=== PATIENT | male | born 1970 | race Caucasian/White ===

== ENCOUNTER 2017-02-09 08:57 | Emergency (ER) | payer SELFPAY ==
[2017-02-09] MEDS ORDERED: LABETALOL HCL 5 MG/ML VIAL IV ONE ×5 (09:15→10:29)
[2017-02-09 09:23] LABS: Hemoglobin 16.7 gm/dL (13.5-18.0); Mean Corpuscular Hgb Conc 34.8 g/dl (32-36); Mean Platelet Volume 10.9 fl (6.0-9.5); Neutrophil # 7.6 K/mm3 (1.3-6.0); Neutrophil % 70.9 % (42-75.0); Platelet Count 175 K/mm3 (150-450); Red Blood Count 5.22 M/mm3 (4.7-6.0); Red Cell Distribution Width 13.1 % (11.5-14.0); White Blood Count 10.8 K/mm3 (4.0-10.5)
[2017-02-09 09:32] LABS: Prothrombin Time (Patient) 10.4 Seconds (9.4-11.4)
[2017-02-09 09:34] LABS: Albumin * 3.9 gm/dl (3.4-5.0); Anion Gap 13.5 mmol/L (6.8-13.8); BUN/Creatinine Ratio 15.2 (9.0-21.6); Bilirubin, Total 0.6 mg/dL (0.0-1.1); Calcium * 9.2 mg/dL (7.9-10.9); Carbon Dioxide 28.1 mmol/L (24-32.6); Partial Thrombolplastin Time 27.2 Seconds (24-32); Potassium 4.6 mmol/L (3.4-4.6); Total Protein 7.5 gm/dL (6.2-8.2)
--- NOTE | 2017-02-09 09:52 | ERNOTE ---
Neuro HPI ER Record Presenting Symptoms: facial droop, impaired speech, confusion Time Seen by Provider: 02/09/17 09:00 Source: family, EMS Exam Limitations: clinical condition Immunizations: IMMUNIZATION HX Immunizations Up to Date Yes History of Influenza Vaccine No Hx Pneumococcal Vaccination No Allergies/Adverse Reactions: Allergies Allergy/AdvReac Type Severity Reaction Status Date / Time No Known Allergies Allergy Verified 02/09/17 09:38 Home Medications: HOME MEDICATIONS Furosemide [Lasix] 40 mg PO DAILY #30 tablet 11/05/16 [Last Taken Unknown] Lisinopril [Zestril] 20 mg PO DAILY #30 tablet 11/05/16 [Last Taken Unknown] Metoprolol Tartrate [Lopressor] 12.5 mg PO BID #30 tab 11/05/16 [Last Taken Unknown] - History of Present Illness Narrative: Patient was last seen normal at midnight, this morning at approximately 7:30 he apparently tried to get out of bed and fell to the floor unable to use the right side of his body. His significant other stated that he was speaking what sounded to be perseverant saying I'm fine I'm fine, he however lapsed at that point and to not being able to speak. It would appear the onset of symptoms was approximately 8+ hours prior to his being brought into the emergency department. Onset: cannot confirm onset Severity: severe - Character of Deficits New weakness: Present: RUE, RLE Additional Deficits: Present: impaired speech Baseline Gait: Present: walks w/o assistance Review of Systems - Review of Systems Constitutional: Present: See HPI EYE: Present: no symptoms reported ENT: Present: no symptoms reported Respiratory: Present: no symptoms reported Cardiology: Present: no symptoms reported Gastrointestinal/Abdominal: Present: no symptoms reported Genitourinary: Present: no symptoms reported Musculoskeletal: Present: no symptoms reported Skin: Present: no symptoms reported Neurological: Present: See HPI Hematologic/Lymphatic: Present: no symptoms reported Psych: Present: no symptoms reported - Patient's Past Medical History Patient History - Medical: Headache Patient History - Cardiac/Respiratory: CHF, Hypertension Patient History - Cancer: No Hx of Cancer Patient History - Surgical Procedures: No surgical history Patient History - Other: None - Social History Living Situations: home Abuse History: No History of abuse Psych History: No pertinent hx Smoking Status: Current every day smoker Have you smoked in the past 12 months: Yes Alcohol Use: none Drug Use: none - Immunizations Immunizations Up to Date: Yes Hx Pneumococcal Vaccination: No History of Influenza Vaccine: No Physical Exam - Physical Exam General Appearance: Present: wd/wn, alert, no apparent distress, severe distress Eye Exam: Normal inspection: bilateral, PERRL: bilateral Ears, Nose, Throat: Present: normal ENT inspection, H, normal pharynx Neck: Present: normal inspection, nontender Respiratory: Present: no respiratory distress, normal breath sounds, no accessory muscle use, chest nontender, lungs clear Cardiovascular/Chest: Present: regular rate, rhythm, no murmur, normal peripheral pulses Gastrointestinal/Abdominal: Present: normal bowel sounds, nontender, nondistended, soft, no organomegaly Rectal Exam: Present: deferred Extremity Exam: Present: no edema, other - Pt unable to use his right arm or leg , right arm is contracted against his body Neurological Exam: Present: alert, motor weakness, disoriented to person, disoriented to time, disoriented to place, disoriented to situation Skin Exam: Present: normal color, warm/dry Lymphatic Exam: Present: no adenopathy Priscilla Coma Scale - Assess Eye Opening: To Voice Motor: Localizes to Pain Verbal: Confused - Total Coma Scale Total: 12 ED Progress - Results and Orders Patient's Lab Results:: I have reviewed the patient's lab results. - Vital Signs Patient's Vital Signs:: I have reviewed the patient's vital signs. Vital Signs: Vital Signs 02/09/17 02/09/17 02/09/17 08:59 09:13 09:14 Temperature 36.8 C 37.3 C Pulse Rate 89 83 83 Respiratory 14 14 Rate Blood Pressure 163/76 189/126 O2 Sat by Pulse 95 98 Oximetry 02/09/17 02/09/17 02/09/17 09:17 09:20 09:32 Temperature Pulse Rate 91 82 82 Respiratory 14 Rate Blood Pressure 189/126 157/106 176/112 O2 Sat by Pulse 98 Oximetry 02/09/17 09:34 Temperature Pulse Rate 84 Respiratory 16 Rate Blood Pressure 185/115 O2 Sat by Pulse 93 Oximetry - EKG EKG: NSR, LVH EKG read: Interp. by me - X-Ray X-Ray #1 X-Ray: chest Interpretation: Reviewed by me - CT/Ultrasound CT/Ultrasound Narrative: CT results were reviewed - Progress/Reassessment Chief Complaint: CerebroVascular Accident Progress:: Unchanged Plan - Plan Plan: Patient will need to be transferred to a tertiary care center like the [facility], and while I did have discussions with jazz Woodall, however they believed that he was beyond her capabilities at this point. We have started a labetalol drip on her trying to get the MAP closer to 100. I do not feel the need to dry the pressure down into the normal ranges that may precipitate a further stroke. Departure Clinical Impression: Hypertension, uncontrolled, Acute CVA (cerebrovascular accident) - Departure Disposition: [facility] Condition: Critical - Critical Care Total Time (mins): 85 Critical Care: Multiple and interventions were undertaken here in the emergency department including management of the blood pressure with both labetalol and a labetalol drip. Some consideration was given to intubation however the patient is managing to control his airway at this juncture. Discussions with both [facility]illo and [facility] and the [facility] has agreed to accept transfer for this patient.
--- OUTSIDE RECORDS SUMMARY | 2017-02-09 10:18 | XMS REPORT | Continuity of Care Document ---
:1970 Author Organization [facility] ([facility]) Address [address] [place] [address] Phone [phone] Care Team Providers Name Role Phone Provider, No-Primary Care Primary Care Provider Unavailable Source Comments This disclosure is being made pursuant to the Care Everywhere program, applicable federal and state laws, and may not contain all informaitonavailable regarding this patient.[facility] ([facility]) Active Allergies and Adverse Reactions No Known Allergies Current Medications Prescription Sig. Disp. Refills Start Date End Date Status lisinopril-hydrochloro Take 1 Tab by mouth Active thiazide 20-25 mg per daily. Indications: tablet HYPERTENSION Active Problems Problem Noted Date ADHD (attention deficit hyperactivity disorder) evaluation 12/06/2013 HTN (hypertension) 07/05/2012 Sterilization consult 05/26/2012 Social History Tobacco Use Types Packs/Day Years Used Date Current Every Day Smoker 0.5 5 Smokeless Tobacco: Never Used Comments:3 cigs a day Alcohol Use Drinks/Week oz/Week Comments No Last Filed Vital Signs Vital Sign Reading Time Taken Blood Pressure 186/128 12/06/2013 9:51 AM [employer] Pulse 115 12/06/2013 9:51 AM [employer] Temperature 36.4 C (97.5 F) 08/11/2012 10:10 AM CDT Respiratory Rate 18 08/11/2012 10:10 AM CDT Height 1.702 m (5' 7") 08/11/2012 10:10 AM CDT Weight 92.42 kg (203 lb 12 oz) 12/06/2013 9:32 AM [employer] Body Mass Index 31.9 12/06/2013 9:32 AM [employer] Oxygen Saturation 98% 08/11/2012 10:10 AM CDT Plan of Care Health Maintenance Due Date Last Done Comments Hepatitis B Vaccine (1 of 3 - Primary Series) 1970 Tdap Vaccine 02/25/1980 Lipid Disorder Screening 1987 MMR Vaccine 1987 Td Vaccine 1987 Pneumococcal Vaccine (1 of 1 - PPSV23) 02/25/1988 Influenza Vaccine: Seasonal (#1) 06/14/2016 Results from Last 3 Months Not on file
[2017-02-09] MEDS: LABETALOL HCL 100 MG in NORMAL SALINE 80 ML IV PRN ×3 (10:22→12:02)
[2017-02-09 11:29] VITALS: BP 162/107
== END 2017-02-09 12:15 | disposition short-term general hospital (02) ==
LOC: ER 08:57
DX: I63.9 Cerebral infarction, unspecified (principal); I10 Essential (primary) hypertension; F17.210 Nicotine dependence, cigarettes, uncomplicated